=== PATIENT | female | born 1935 | race Caucasian/White ===

== ENCOUNTER 2020-02-16 12:28 | Inpatient (IN) | payer OTHER ==
[~2020-02-16] VITALS: Ht 162.6 cm; Wt 47.8 kg
[2020-02-16 12:30] VITALS: BP 141/92
--- NOTE | 2020-02-16 17:58 | NUR ---
PATIENT ARRIVED TO [facility] VIA STRETCHER WITH EMS AND ADMITTED TO ROOM 518A. PATIENT WAS ANGRY STATING SHE WOULD NOT MOVE UNTIL SHE SEES HER SISTER. PATIENT WAS ASSTED BY EMS AND PREPARED FOODS SUPERVISOR TO BED TO A SITTING POSITION ON SIDE OF BED. PATIENT YELLING OUT WHILE EMS REPORTS OFF TO PREPARED FOODS SUPERVISOR. VS OBTAINED WITH PATIENT YELLING AND AGGRESSION. BP-141/92 P-74 TEMP- 98.8 O2 SATS 96%. PATIENT CONTINUES TO YELL OUT AND INCREASED AGGITATION. DR VERGARA ORDERED GEODON 10MG IM X1 . PATIENT OUT TO DAYROOM VIA WC FOR LUNCH. PATIENT CALMED DOWN. [facility] PATIENT HAVING DIFFICULTY REMEBERING MED HX AND UNABLE TO ANSWER SOME QUESTIONS. MEDICAL RECORDS USED TO COMPLETE ADMISSION. 1710 PATIENT IN DAYROOM FOR DINNER, EATS WITH ASSISTANCE AND PATIENT CALM AND COOPERATIVE. WILL CONTINUE TO OBSERVE
--- NOTE | 2020-02-17 04:51 | NUR ---
ASSUMED PT CARE AROUND 1929. AXOX1. RECEIVED IN EDUARDO CHAIR SLEEPING. SOON AFTER SHIFT CHANGE, PT STARTED SCREAMING AND GETTING OUT OF CHAIR. UNABLE TO CALM PT DOWN. CALLED OBTAINED AN ORDER FOR GEODON. SHOWED IMPROVEMENT. AGAIN AT AROUND 299, PT WOKE UP AND STARTED SCREAMING HELP AND GET OUT OF CHAIR. CALLED AGAIN AND OBTAINED AN ORDER FOR LORAZEPAM AND HALDOL. SHOWED SOME EFFECTS BUT SHE'S STILL RESTLESS IN CHAIR. NO S/S ACUTE DISTRESS NOTED OR REPORTED AT THIS TIME. WILL CONT TO MONITOR FOR ANY CHANGES IN CONDITION.
[2020-02-17 09:05] VITALS: BP 138/88
--- NOTE | 2020-02-17 11:29 | NUR ---
Sw looked through notes from [facility] and pt has 2 DPOA [place] post [phone], Joelle jackson [phone]. she also has a niece Marie [phone], and a sister darryl [phone]. Cm called and left a VM with Virginia, and then spoke with Marie requesting health insurance information- and she does not have it.
--- NOTE | 2020-02-17 12:00 | NUR ---
Sw spoke with ABDI Lai and completed the intake assessment and TP. This alos included getting her Medicare and [employer] numbers. Pt lives at [facility] and Joelle is hoping they will take her back as she PP.
--- NOTE | 2020-02-17 13:44 | NUR ---
Alert to name and place but not to situation or time. Denies SI/HI. Behavior labile. Calm most of the time but becomes demanding and tearful occassionally. Stated her head hurt and given tylenol. Sitting most of AM in recliner. Breath sounds clear. Reg HR auscultated. Color pink with brisk capillary refill and palpable peripheral pulses. No edema. Continent of yellow urine per toilet. Active bowel sounds over soft, rounded abdomen. Assisted with ADLs. Healing skin tear to L lower leg. Currently sitting in dining room covering self with blanket. No s/o distress.
--- NOTE | 2020-02-17 16:04 | EKG ---
[facility] [place] [address] ELECTROCARDIOGRAM REPORT Name: LUCIANO MCCANN Room #: [facility] ADM IN M.R.#: [id number] Admission: 02/16/20 Attend Phys: Colten Quiroga DO Discharge: Date of : 31 Report #: [id number] THIS REPORT FOR: cc: FAM - Family physician unknown FAM - Family physician unknown Danis Flores MD ~ THIS REPORT FOR: //name// [facility] Test Date: 2020-02-16 Test Time: 13:18:36 Pat Name: LUCIANO MCCANN Department: Room: [facility] Gender: F Jitney Driver: Shirley BALDERAS : 1935 Requested By: Colten Quiroga Order Number: [id number] MD: Danis Flores Measurements Intervals [place] Rate: 74 P: 66 OK: 162 QRS: 78 QRSD: 92 T: 63 QT: 399 QTc: 443 Interpretive Statements Sinus rhythm No previous ECG available for comparison Electronically Signed On 02-17-2020 16:04:31 CDT by Danis Flores [email or web address] <ELECTRONICALLY SIGNED> By: Danis Flores MD 02/17/20 1604 1318 1318 Danis Flores MD /MADYSON
[2020-02-17 19:36] VITALS: BP 130/60
--- NOTE | 2020-02-18 05:16 | NUR ---
02-17-20 CARE TRANSFERED AT 1914 RIGHT SIDE LYING RESTING WITH EYES CLOSED IN BED. 2139 PT AAOX2, PT PRESENTS AGITATED AND ANGRY, PT DENIES PAIN AND SI/HI BUT IS UNWILLING TO COOPERATIVE ANY FURTHER. PT VSS, RR EVEN AND NONLABORED ON RA. PT REFUSED MEDICATION. ZERO S/S OF ACUTE EMOTIONAL OR MEDICAL DISTRESS, PT WILL CONTINUE TO BE MONITOR PER [facility] PROTOCOL.
[2020-02-18 07:27] VITALS: BP 126/64
--- NOTE | 2020-02-18 12:35 | NUR ---
OSIRIS contacted John of [facility] and sent updates, OSIRIS also provided an update to Sandy.
--- NOTE | 2020-02-18 13:11 | NUR ---
02/18/20 DAY SHIFT-PATIENT WAS UP IN [facility] SITTING IN DAYR ROOM WHEN CARE ASSUMED. PATIENT IS ALERT AND ORIENTED X 2-3, ABLE TO VOICE NEED. PATIENT TOOK ALL MEDICATION WHOLE WITHOUT DIFFICULTY. PATIENT FED BREAKFAST BY STAFF, SHE CONSUMED 50%. PATIENT ASSESTED BACK TO BED BY STAFF PER HER REQUEST. PATIENT HAD SMALL FORMED BOWEL MOVEMENT PRIOR TO GOING BACK TO BED. PATIENT DENIES SUICIDAL/HOMICIDAL IDEATION, SHE DENIES DEPRESSION/ANXIETY. WHEN ASSISTED OUT OF BED FOR LUNCH, PATIENT YELLED AT STAFF FROM HER ROOM, TO DINNING AREA, STOPPED YELLING SOON SHE WAS SITTED TO THE DINNING TABLE. SHE ATE ABOUT 50% LUNCH. PATIENT'S CONCERN IS "TO SLEEP", GOAL IS "TO GET WELL". AFFECT IS FLAT/BLUNTED, MOOD IS SAD/FRUSTRATED. NO SIGN OF ACUTE DISTRESS NOTED AT THIS TIME, WILL CONTINUE TO REDIRECT, AND MONITOR FOR SAFETY.
--- NOTE | 2020-02-18 14:50 | NUR ---
Cm spoke with Joelle and provided another update, adkisha then sent updates to [facility], and then provided verbal updates to admissions at [facility]. They are willing to take this pt back as long as she is less threatnening to staff and peers. and less physically aggressive
[2020-02-18 20:13] VITALS: BP 146/91
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
--- NOTE | 2020-02-19 00:42 | NUR ---
PATIENT UP IN DAYROOM TONIGHT UNTIL SHE WENT TO BED. SHE SAT IN RECLINER WITH LAPBUDDY ON AND FASTENED IN FRONT. PATIENT WOULD YELL AT OTHER PEOPLE OR ENGAGE THEM INTO ARGUMENTS. CALLED ENVIRONMENTAL SPECIALIST PRODUCT SUPPORT TECHNICIAN FOR ORDER TO CALM HER. ORDER GIVEN FOR HALDOL 5MG IM. PATIENT TAKEN TO BED AND TOILETED. PATIENT FELL ASLEEP IMMEDIATELY AND HAS CONTINUED TO SLEEP. HALDOL 5MG IM WAS NOT GIVEN AND TREVER FELIZ NOTIFIED OF THIS. PATIENT IS IN BED ASLEEP. BED IN LOW POSITION AND BED ALARM IS ON. PT DENIES SI/HI/AVH AND PAIN. ROUTINE ROUNDING TO ASSESS STATUS AND SAFETY OF PATIENT.
[2020-02-19 09:17] VITALS: BP 124/57
--- NOTE | 2020-02-19 17:14 | NUR ---
Alert and orientated to person and place. Ambulates with walker d/t gait being unsteady at times. Denies SI/HI. Confused speech with some coherent statements. Breath sounds clear. Reg HR auscultated. Color pink with brisk capillary refill and palpable peripheral pulses. Brief dry. Active bowel sounds over soft, flat abdomen. 0.5 cm open area in LUQ (previous PEG tube site) without s/o infection, no drainage. Spent part of day in bed, in dining room for meals.
[2020-02-19 20:48] VITALS: BP 152/73
--- NOTE | 2020-02-20 06:11 | NUR ---
Assumed care of pt @ 1900. Pt calm et cooperative in early part of shift but bacame anxious et agitated soon after. Pt becomes easily agitated when she thinks that someone has stolen her "babies" which are two small stuffed animals. Pt kept calling nurses to the room to look for her babies so this nurse affixed the babies to her wrists with ID bracelets to prevent them from getting lost. Took medications whole without difficulty. Was given Geodon 15mg IM X1 for agitation per COUPON COLLECTION CLERK public relations sales marketing. VSWNL. Health assessment with no abnormalities noted at present time. Unable to assess SI/HI due to cognitive deficit but does not demonstrate any signs or symptoms of emotional distress at present time. Currently resting in bed with eyes closed. Will continue to monitor per protocol.
[2020-02-20 07:46] VITALS: BP 134/74
--- NOTE | 2020-02-20 11:27 | NUR ---
PATIENT WAS UP, AND OUT ON THE UNIT. AMBULATES WITH ASSIST OF ROLLER WALKER, GAIT SLIGHTLY UNSTEADY. PATIENT TOOK ALL MEDICATION WHOLE WITHOUT DIFFICULTY. PATIENT IS EATING MEALS, AND DRINKING FLUID WELL. PATIENT DENIES SUICIDAL/HOMICIDAL IDEATION, DENIES HAVING PHYSICAL PAIN. PATIENT PRESENTS WITH DISORGANIZED THOUGHT PROCESS, UNABLE TO APPROPRIATELY RESPOND TO FURTHER ASSESSMENT QUESTIONS. AFFECT IS FLAT/BLUNTED, MOOD IS EUTHYMIC. NO AGITATION OR AGGRESSIVE BEHAVIOR NOTED AT THIS TIME. STUFFED ANIMALS IN PLACE TO PATIENT'S WRISTS. NO SIGN OF ACUTE DISTRESS NOTED AT THIS TIME, WILL MONITOR FOR SAFETY.
--- NOTE | 2020-02-20 15:02 | NUR ---
Mai's roommate alerted me that Mai was in her room and needed assistance. I walked in to find Mai on the edge of her bed in a panic stating, "I had a bad dream! It was about my sister!" Administrative Manager comforted Mai by holding her hand until she stated she felt safe. She then got back in to bed and held on to her "babies" (beanie babies) and requested to be tucked back in to bed. She stated she felt better and said jhonathan to her roommate.
[2020-02-20 20:00] VITALS: BP 126/72
--- NOTE | 2020-02-21 05:23 | NUR ---
Assumed care of pt @ 1900. Pt calm et cooperative this shift. Took medications whole without difficulty. Ambulates with assistance of walker but very unsteady. VSWNL. Health assessment with no abnormalities noted at present time. Unable to assess SI/HI due to cognitive deficit but pt does not demonstrate any signs or symptoms of emotional distress at present time. Currently resting in bed with eyes closed. Will continue to monitor per protocol.
[2020-02-21 07:40] VITALS: BP 135/69
[2020-02-21 14:53] VITALS: BP 135/69
--- NOTE | 2020-02-21 14:54 | NUR ---
FREQUNT EPISODES OF AGITATION SO FAR THIS SHIFT. BEGINS TO YELL LOULDLY "HELP,HELP"WHEN APPROACHED BY STAFF IS UNABLE FREQUENTLY TO EXPLIN WHY SHE IS YELLING "I DON'T KNOW YOU SHOULD KNOW" "UI DON'T KNOW WHAT IS GOING ON" REQUIRES ALMOST CONSTANT SUPPORT,REDIRECT FROM NURSING STAFF AND WILL IMMEDIATLY BEGIN TO YELL OUT WHEN STAFF WALKS AWAY.
[2020-02-21 20:20] VITALS: BP 125/68
--- NOTE | 2020-02-22 04:24 | NUR ---
Assumed care of pt @ 1900. Pt calm et cooperative this shift. Took medications whole without difficulty. Did not observe ambulation this shift. VSWNL. Health assessment with no abnormalities at present time. Pt called out several times during the shift for minor wants and needs. Appears to be especially needy in the first part of the shift. Denies SI/HI but unsure if patient fully understood the questions that were asked of her. Isolated in room most of shift. Currently resting in bed with eyes closed. Will continue to monitor per protocol.
[2020-02-22 07:34] VITALS: BP 122/60
--- NOTE | 2020-02-22 16:23 | NUR ---
WITHDRAWN TO ROOM DURING ANY UNSTRUCTURED TIME DID APPEAR TO REST QUIETLY FOR 30 MINUTES TO AN HOUR BEFORE WAKING UP AND YELLING-BEGAN TO YELL OUT LOUDLY FOR "RODRIGO" WILL QUIET WHEN STAFF IS IN ROOM AT BEDSIDE BUT WHEN STAFF WALKS AWAY BEGINS TO YELL "HELP.HELP" DURING 1;1 STATES SHE IS ANXIOUS BECAUSE "I CAN'T SEE-I HAVEN'T BEEN OUT OF THE HOSPITAL SINCE NOVEMBER-I CAN'T DO ANYTHING" BEGINS TO CRY LOUDLY-DOES RESPOND TO SUPPORT AND REASSURANCE-ASSISTED IN CALLING FRIEND ABDI ARREDONDO ON SPOKE WITH HER ON PHONE FOR APPROX 15 MINUTES. DENIES C/O PAIN. IS HIGH FALLS RISK-GAIT UNSTEADY -USES ROLLER WALKER AND REQUIRES SBA X1 WILL FREQUENTLY LOOSE BALANCE OR STATES FELLS LIKE KNEES ARE "GIVING OUT" IS COMPLIENT WITH TAKING MEDICATIONS-APPETITE FAIR. DENIES SI/SH/HI. NO NOTED OR REPORTED A/V HALLUCINATIONS OR PSYCHOSIS. USING BEDSIDE COMMODE WITH ASSIST OF 1 STAFF.
[2020-02-22 19:45] VITALS: BP 122/48
[2020-02-22 20:20] VITALS: BP 122/60
--- NOTE | 2020-02-23 01:36 | NUR ---
PATIENT A/O X 1-2. PATIENT HAS BEEN IN BED SINCE BEGINNING OF THE SHIFT. ASSISTED PATIENT TO BATHROOM WITH WALKER. PATIENT STATES SHE DIDN'T WANT ANY MEDS THAT WOULD MAKE HER SLEEPY TONIGHT. SHE THOUGHT IT WAS MORNING WHEN I WENT TO ASSESS HER AT 1930. PATIENT TOOK HER MEDS WHOLE WITH WATER TONIGHT. SHE SAID THAT IF SHE FELT THE WAY SHE DID TODAY, BEING SO TIRED, IN THE MORNING THAT SHE WOULD COME AFTER ME. I TOLD HER TO SPEAK WITH THE DOCTOR AND LET HIM KNOW IF SHE WAS HAVING ANY PROBLEM WITH HER MEDS. SHE SAID SHE WOULD. PATIENT DENIES PAIN. SHE DENIES SI/HI/AVH. BED IN LOW POSITION AND BED ALARM IS ON. ROUNTINE ROUNDS TO ASSESS SAFETY AND STATUS OF PATIENT.
--- NOTE | 2020-02-23 11:24 | NUR ---
1000- PT WENT TO LAY DOWN AFTER GROUP. APPROXIMATELY 1015 PT BEGAN TO YELL HELP FROM ROOM. RN WENT TO ROOM TO CHECK ON PT AND FOUND PT STILL LAYING DOWN BUT YELLING HELP. PT STATED SHE HAD A NIGHTMARE. RN REORIENTED PT AND SHE APPEARED TO CALM DOWN AND CLOSE HER EYES. WILL CONTINUE TO MONITOR PT.
--- NOTE | 2020-02-23 12:21 | NUR ---
@12pm Cm contacted Camelia at [facility], , to inform Pt would be discharged. Camelia stated that would not be able to transport due to the van being down. Cm will set up transportation for Pt. 12:20 PM Cm contacted [employer] and set up transportation for 10 am. Pt will need COVID testing before discharge
--- NOTE | 2020-02-23 15:32 | NUR ---
RT Progress Note- Mai Vale" is present in the milieu but not an active participant in groups d/t cognition. She has been accepting of daily 1;1 social visits and expresses a sense of fear each time. This is likely d/t her limited vision as she is easily comforted when she is reoriented to her environment. She particularly enjoys talking about her "babies" (stuffed toys) and holding them when she is nervous.
[2020-02-23 19:46] VITALS: BP 140/65
[2020-02-23 20:40] VITALS: BP 140/65
--- NOTE | 2020-02-24 02:56 | NUR ---
PATIENT HAS BEEN PLEASANT AND COOPERATIVE TONIGHT. SHE STATES SHE IS VERY UPSET THAT SHE CAN'T SEE WELL AND SHE STATES IT'S HARD TO EAT AT TIMES WHEN TRYING TO SEE HER FOOD. SHE GOT UPSET AND ANXIOUS WHEN SHE COULDN'T FIND HER 2 STUFFED ANIMALS UNDER HER PILLOW TONIGHT. I CALMED PATIENT AND PULLED THEM OUT FOR HER TO HOLD. SHE PLACED THEM NEXT TO HER SO SHE COULD REACH THEM. PT CALMED. SHE STATES SHE HOPES THAT SHE GETS TO THINKING BETTER AND FEELING HER NORMAL SELF AGAIN. PATIENT ASSISTED TO THE BATHROOM. PATIENT IS BACK TO BED AND BED IN LOW POSITON AND BED ALARM IS ON. PATIENT TOOK HER MEDS WHOLE WITH WATER. ROUTINE ROUNDS TO ASSESS FOR SAFETY AND STATUS OF PATIENT.
[2020-02-24 09:08] VITALS: BP 121/64
[2020-02-24 09:17] VITALS: BP 121/64
[2020-02-24] MEDS ORDERED: PEPCID20 MG PO (09:35)
[2020-02-24] MEDS ORDERED: OLANZAPINE2.5 MG PO (09:35)
[2020-02-24] MEDS ORDERED: IRON325 PO (09:35)
[2020-02-24] MEDS ORDERED: ELIQUIS5 MG PO (09:35)
[2020-02-24] MEDS ORDERED: NORVASC5 MG PO (09:35)
[2020-02-24] MEDS ORDERED: SORINE 80 MG TA80 M1 PO (09:35)
[2020-02-24] MEDS ORDERED: COLACE 100 MG100 MG PO (09:35)
[2020-02-24] MEDS ORDERED: DEPAKOTE SPRIN125 MG PO (09:35)
--- NOTE | 2020-02-24 10:25 | NUR ---
Alert and orientated to name only. Unsteady gait with walker, needs supervision. Denies SI/HI. Some coherent statements and questions. Some confused speech. Able to follow directions, cooperative with meds. Took meds crushed in apple sauce. Breath sounds clear. Reg HR auscultated. Color pink with brisk capillary refill and palpable peripheral pulses, slightly decreased in lower extremities. Active bowel sounds over soft, flat abdomen. 0.25 cm open area in LUQ from peg site without s/t infection. Brief dry. Report called to Camelia Lee at [facility]. Consent to transfer obtained from Nancy Chery friend and DPOA. Discharged per wheelchair with wheelchair van attendent and 1010. Belongings and paperwork given to attendant.
== END 2020-02-24 10:10 | DRG 884 ==
LOC: SBH 12:28
PROVIDERS: ADMIT Psychiatry & Neurology Psychiatry; ATTEND Psychiatry & Neurology Psychiatry
DX: F01.51 Vascular dementia, unspecified severity, with behavioral disturbance (principal); F41.9 Anxiety disorder, unspecified; G47.00 Insomnia, unspecified; I48.91 Unspecified atrial fibrillation; F32.9 Major depressive disorder, single episode, unspecified; I10 Essential (primary) hypertension; D64.9 Anemia, unspecified; F29 Unspecified psychosis not due to a substance or known physiological condition; Z20.828 Contact with and (suspected) exposure to other viral communicable diseases; Z87.820 Personal history of traumatic brain injury; Z79.899 Other long term (current) drug therapy
CPT/HCPCS: 10880